=== PATIENT | male | born 1985 | race Two or more races ===

== ENCOUNTER 2024-02-08 20:39 | Emergency (ER) | payer SELFPAY ==
[~2024-02-08] VITALS: Ht 172.7 cm; Wt 150.0 kg
[2024-02-08 22:05] VITALS: BP 129/64; PULSE 72; RESP 18; TEMP 98.3; O2SAT 99
[2024-02-08] MEDS ORDERED: PRED20TA2 PO (22:31)
[2024-02-08] MEDS ORDERED: DIPH25CA66 PO (22:31)
[2024-02-08] MEDS ORDERED: FAMO20TA10 PO (22:31)
[2024-02-09] MEDS: methylPREDNISolone SOD SUCC 125 MG/2 ML VL IM ONE (02:41)
[2024-02-09] MEDS: diphenhdrAMINE HCL 50 MG/1 ML VL IM ONE (02:41)
[2024-02-09] MEDS: FAMOTIDINE 20 MG TAB PO ONE (02:42)
== END 2024-02-08 22:57 | disposition home or self-care (01) ==
LOC: ER 20:39
DX: L50.0 Allergic urticaria (principal)
CPT/HCPCS: 96372; 99284; J1200; J2919

== ENCOUNTER 2025-07-28 08:15 | Inpatient (IN) | payer MEDICAID ==
[~2025-07-28] VITALS: Ht 172.7 cm; Wt 183.1 kg
[~2025-07-28 08:15] MED LIST: DIPH25CA66 PO; FAMO20TA10 PO; PRED20TA2 PO
--- NOTE | 2025-07-28 09:35 | DVH ---
EXAM: XY CHEST PORTABLE Indication: sob Technique: Single frontal view of the chest was obtained Comparison: None FINDINGS: Lines and Tubes: None Lungs: No focal consolidation. Pleura: No effusion. No pneumothorax. Cardiomediastinal contours: Unremarkable Bones: No acute osseous abnormality. IMPRESSION: No acute cardiopulmonary disease.
[2025-07-28 09:51] LABS: Hematocrit 46.1 % (41.0-53.0); Hemoglobin 15.3 g/dL (13.5-17.5); Mean Corpuscular Hemoglobin 29.3 pg (28.0-32.0); Mean Corpuscular Volume 88.2 fL (80.0-100.0); Nucleated Red Blood Cells % 0.0 %
[2025-07-28 09:53] LABS: Chloride 102 mmol/L (98-107); Potassium 4.1 mmol/L (3.5-5.1); Sodium 139 mmol/L (136-145)
[2025-07-28 09:54] LABS: Anion Gap 8 (5-15); Carbon Dioxide 29 mmol/L (20-31)
[2025-07-28 09:55] LABS: Calcium 9.7 mg/dL (8.7-10.4)
--- NOTE | 2025-07-28 09:55 | ED.PDOC ---
HPI Comments This is a 40 year old male presenting to the ED with chief complaint of leg swelling. Patient reports that he has been experiencing worsening bilateral leg swelling with associated abdominal distention for the past 5-6 months. Patient relays that he is currently on a water pill, but no relief has been noted. Patient denies any chest pain, SOB, dizziness, N/V, headache, or fever. Chief Complaint: Extremity Swelling Time Seen by MD: 09:53 Reviewed Notes: Nurses Notes, Medications, Allergies Allergies: Coded Allergies: NO KNOWN ALLERGIES (Unverified , 02/08/24) Home Meds Active Scripts Prednisone (Prednisone) 20 Mg Tab, 1 TAB PO BID for 5 Days, #10 TAB Start tomorrow with food Prov:VERNELL NELSONA Q [employer] OPERATOR 02/08/24 Famotidine (PEPCID TABLET) 20 Mg Tb, 1 TAB PO BID for 10 Days, #20 TAB Prov:VERNELL NELSONA Q [employer] OPERATOR 02/08/24 Diphenhydramine Hcl (Benadryl Allergy) 25 Mg Cap, 1 CAP PO Q8HPRN PRN, #30 CAP As needed for allergy sleep symptoms such as rash itchiness swelling of the face or throat Prov:CHAN NELSON Q [employer] OPERATOR 02/08/24 Information Source: Patient Mode of Arrival: Ambulatory Severity: Moderate Timing: Months Duration: Since onset Prehospital treatment: None Associated Signs and Symptoms: Calf Swelling Past Medical History PAST MEDICAL HISTORY: Unknown Surgical History: Denies all surgeries Family History Family History: Reviewed,noncontributory to illness Social History Smoker: Non-Smoker Alcohol: Denies ETOH Use Drugs: Denies Drug Use Lives In: Home Constitutional: denies: chills, diaphoresis, fatigue, fever, malaise, sweats, weakness, others EENTM: denies: blurred vision, double vision, ear bleeding, ear discharge, ear drainage, ear pain, ear ringing, eye pain, eye redness, hearing loss, mouth pain, mouth swelling, nasal discharge, nose bleeding, nose congestion, nose pain, photophobia, tearing, throat pain, throat swelling, voice changes, others Respiratory: denies: cough, hemoptysis, orthopnea, SOB at rest, shortness of breath, SOB with excertion, stridor, wheezing, others Cardiovascular: reports: edema; denies: chest pain, dizzy spells, diaphoresis, Dyspnea on exertion, irregular heart beat, left arm pain, lightheadedness, palpitations, PND, syncope, others Gastrointestinal: reports: abdomen distended; denies: abdominal pain, blood streaked bowels, constipated, diarrhea, dysphagia, difficulty swallowing, hematemesis, melena, nausea, poor appetite, poor fluid intake, rectal bleeding, rectal pain, vomiting, others Genitourinary: denies: burning, dysuria, flank pain, frequency, hematuria, incontinence, penile discharge, penile sore, pain, testicle pain, testicle swelling, urgency, others Neurological: denies: dizziness, fainting, headache, left sided numbness, left sided weakness, numbness, paresthesia, pre-existing deficit, right sided numbness, right sided weakness, seizure, speech problems, tingling, tremors, weakness, others Musculoskeletal: denies: back pain, gout, joint pain, joint swelling, muscle pain, muscle stiffness, neck pain, others Integumetry: denies: bruises, change in color, change in hair/nails, dryness, laceration, lesions, lumps, rash, wounds, others Allergic/Immunocompromised: denies: Difficulty Healing, Frequent Infections, Hives, Itching, others Hematologic/Lymphatic: denies: anemia, blood clots, easy bleeding, easy bruising, swollen glands, others Endocrine: denies: excessive hunger, excessive sweating, excessive thirst, excessive urination, flushing, intolerance to cold, intolerance to heat, unexplained weight gain, unexplained weight loss, others Psychiatric: denies: anxiety, bipolar disorder, depression, hopeless, panic disorder, schizophrenia, sleepless, suicidal, others All Other Systems: Reviewed and Negative Physical Exam General Appearance: No Apparent Distress, Normal HEENT: Normal ENT Inspection, Pharynx Normal, TMs Normal Neck: Full Range of Motion, Non-Tender, Normal, Normal Inspection Respiratory: Chest Non-Tender, Lungs Clear, No Accessory Muscle Use, No Respiratory Distress, Normal Breath Sounds Cardiovascular: No Edema, No JVD, No Murmur, No Gallop, Normal Peripheral Pulses, Regular Rate/Rhythm Breast Exam: Deferred Gastrointestinal: No Organomegaly, Non Tender, No Pulsatile Mass, Normal Bowel Sounds, Soft Genitalia: Deferred Pelvic: Deferred Rectal: Deferred Extremities: Leg edema (2+ pitting edema to bilateral lower extremities), No calf tenderness, Normal capillary refill, Normal inspection, Normal range of motion Musculoskeletal : Apperance: Normal Neurologic: Alert, prize fighter II-XII nml as Tested, No Motor Deficits, Normal Affect, Normal Mood, No Sensory Deficits Cerebellar Function: Normal Reflexes: Normal Skin: Dry, Normal Color, Warm Lymphatic: No Adenopathy Was a procedure done? Was a procedure done?: No CP Differential Dx Differential Diagnosis: Hypoxia, MAT, DE Differential Diagnosis: CHF, HTN Essential, HTN Accelerated Differential Diagnosis: Gastritis, Myocardial Infarction X-Ray, Labs, Meds, VS Vital Signs Date Time Temp Pulse Resp B/P (MAP) Pulse Ox O2 Delivery O2 Flow Rate FiO2 07/28/25 08:18 98.0 94 18 154/88 96 98.0 Lab Test 07/28/25 12:00 07/28/25 09:50 07/28/25 08:58 Range/Units Troponin I High Sensitivity 5 4 5 </=54 ng/L White Blood Count 9.7 4.4-10.8 10^3/uL Red Blood Count 5.22 4.5-5.90 10^6/uL Hemoglobin 15.3 13.5-17.5 g/dL Hematocrit 46.1 41.0-53.0 % Mean Corpuscular Volume 88.2 80.0-100.0 fL Mean Corpuscular Hemoglobin 29.3 28.0-32.0 pg Mean Corpuscular Hemoglobin Concent 33.2 32.0-36.0 g/dL Red Cell Distribution Width 15.7 H 11.8-14.3 % Platelet Count 240 140-450 10^3/uL Mean Platelet Volume 9.0 6.9-10.8 fL Neutrophils (%) (Auto) 75.1 37.0-80.0 % Lymphocytes (%) (Auto) 14.8 10.0-50.0 % Monocytes (%) (Auto) 7.3 0.0-12.0 % Eosinophils (%) (Auto) 2.0 0.0-7.0 % Basophils (%) (Auto) 0.8 0.0-2.0 % Neutrophils # (Auto) 7.3 1.6-8.6 10 ^3/uL Lymphocytes # (Auto) 1.4 0.4-5.4 10 ^3/uL Monocytes # (Auto) 0.7 0-1.3 10 ^3/uL Eosinophils # (Auto) 0.2 0-0.8 10 ^3/uL Basophils # (Auto) 0.1 0-0.2 10 ^3/uL Nucleated Red Blood Cells 0.0 % Sodium Level 139 136-145 mmol/L Potassium Level 4.1 3.5-5.1 mmol/L Chloride Level 102 98-107 mmol/L Carbon Dioxide Level 29 20-31 mmol/L Anion Gap 8 5-15 Blood Urea Nitrogen 6 L 9-23 mg/dL Creatinine 0.88 0.700-1.30 mg/dL Glomerular Filtration Rate Calc 110 >90 mL/min BUN/Creatinine Ratio 6.8 L 10.0-20.0 Serum Glucose 162 H 74-106 mg/dL Calcium Level 9.7 8.7-10.4 mg/dL B-Type Natriuretic Peptide 2.30 0-100 pg/mL Time of 1ST Reevaluation: 10:52 Reevaluation 1ST: Unchanged Patient Education/Counseling: Diagnosis, Treatment Family Education/Counseling: No Family Present SEPSIS Sepsis Screen Date sepsis recognized/suspect: Jul 28, 2025 Time Sepsis recognized/suspect: 817 Recent Procedure: No On Antibiotic Therapy: No Respiratory Rate >20: No Heart Rate >90: No Temp<36 C (96.8 F) or >38.3 C: No SBP <90 or MAP <65 mmHG: No New Acute Mental Status Change: No Is the patient on CPAP, BIPAP,: No Physician Orders Chest Portable (07/28/25 08:44) Electrocardigram (07/28/25 08:44) Electrocardigram (07/28/25 09:44) Electrocardigram (07/28/25 11:44) Ct Ab Pel With Iv Con Only (07/28/25 10:48) Vital Signs Date Time Temp Pulse Resp B/P (MAP) Pulse Ox O2 Delivery O2 Flow Rate FiO2 07/28/25 08:18 98.0 94 18 154/88 96 98.0 Laboratory Tests Test 07/28/25 08:58 White Blood Count 9.7 10^3/uL (4.4-10.8) Departure 1 Departure Time of Disposition: 13:05 (Patient presented with abdominal pain that was concerning for possible appendicits, gastritis, cholecystitis, colitis, gastroenteritis, sbo, or orther possible surgical emergency. Data: 1. I ordered and reviewed the result of at least 3 labs including a CBC, BMP, and Urinalysis. 2. I independently interpreted the following tests: CT Abdomen and Pelvis is concerning for possible malignancy or infection. .Risk:This patient has a high risk of morbidity due to further diagnostic testing or treatment and may suffer from an acute abdominal process disorder. Workup reveals acute on chronic systo lic failure and worsening abdominal pain and patient should be admitted for further workup. and possible expert consultation. ) Impression: Primary Impression: Intractable abdominal pain Additional Impressions: Acute on chronic systolic heart failure Shortness of breath Disposition: ADMITTED INPATIENT Admit to: Med Surg Condition: Guarded Critical Care Note Critical Care Time?: No Stability Stability form required: No Heart Score Heart Score: Heart Score Response (Comments) Value History Moderate Suspicious 1 EKG Normal 0 Age <45 0 Risk Factors No known risk factors 0 Troponin Normal limit 0 Total 1 I personally scribed for EDUARDO LEDEZMA MD ([email or web address]) on 07/28/25 at 09:55. Electronically submitted by Minesh Prakash ([email or web address]). EDUARDO LEDEZMA MD Jul 28, 2025 09:55
[2025-07-28 10:00] LABS: BUN/Creatinine Ratio 6.8 (10.0-20.0); Blood Urea Nitrogen 6 mg/dL (9-23); Glucose 162 mg/dL (74-106)
[2025-07-28] MEDS: IOHEXOL 300 MG/ML 100ML BOTTLE IJ ONE (11:27)
--- NOTE | 2025-07-28 12:15 | DVH ---
Indication: abdominal pain Technique: CT axial images of the abdomen and pelvis are obtained with contrast. Coronal and sagittal reformats were obtained. Radiation Dose Information: CTDI volume is 25.51 mGy. Dose-length product is 1502.11 mGy*cm Comparison: None FINDINGS: Lung bases demonstrate no pleural effusion. Bibasilar atelectasis. The adrenal glands, spleen and pancreas are unremarkable. Hepatic steatosis. Hepatomegaly. No CT evidence for cholelithiasis. m no hydronephrosis. Left renal calculus measuring 12 mm that is nonobstructing. Stomach partially distended. Small bowel loops are normal in caliber. Moderate volume stool in the colon. Normal appendix. Abdominal aorta normal in caliber. Subcentimeter retroperitoneal lymph nodes. Right iliac lymph node measuring 2.4 cm. Left iliac lymph node measuring 2 cm. Left inguinal lymph nodes measuring up to 1.5 cm. Right inguinal lymph nodes measuring up to 1.7 cm. No aggressive osseous process. Mild bilateral sacroiliac degenerative joint disease. Moderate lumbar degenerative disc disease most pronounced at L2-3. [id number] thoracolumbar degenerative disc disease. IMPRESSION: Bilateral iliac and inguinal lymphadenopathy. Correlate for infectious, inflammatory, neoplastic etiologies. Hepatomegaly, hepatic steatosis. Nonobstructing left renal calculus measuring 12 mm.
--- NOTE | 2025-07-28 15:41 | DVHHP2 ---
History of Present Illness Reason for Visit: Lower extremity edema History of Present Illness 40-year-old male presents for evaluation of lower extremity edema. Patient reports a five month history of bilateral lower extremity edema as well as abdominal distention. He he initially was started on furosemide with no effect on the swelling. Currently he is taking Bumex 1 mg daily. He states the swelling has not decreased. Denies abdominal pain. No shortness for breath or chest pain. No other acute complaints. Past Medical History Denies Past Surgical History Denies Family History Noncontributory Smoke: No ALCOHOL: none Drugs: None Lives: with Family Review of Systems Review of Systems Review of systems are currently negative otherwise addressed in HPI. Allergies: Coded Allergies: NO KNOWN ALLERGIES (Unverified , 02/08/24) Exam Vital Signs Vital Signs Date Time Temp Pulse Resp B/P (MAP) Pulse Ox O2 Delivery O2 Flow Rate FiO2 07/28/25 08:18 98.0 94 18 154/88 96 98.0 Exam Gen: 40-year-old male in mild distress, morbidly obese Skin: Warm, dry, normal color and texture, no rash. HEENT: Normocephalic atraumatic, mucous membranes moist and pink. Neck: Cervical and supraclavicular nodes normal without enlargement, trachea is midline, thyroid gland is normal without masses. Pulmonary: Clear to auscultation and percussion bilaterally. Cardiac: Regular rate and rhythm. No murmur Abdomen: Soft, nontender, distended, bowel sounds present all 4 quadrants, no guarding, no rigidity, no organomegaly. Extremities: No cyanosis, clubbing, plus two bilateral lower extremity edema nontender Neuro: Cranial nerves II through XII grossly intact, normal affect and speech, n o focal motor deficits. Labs/Xrays ORDERING PHYSICIAN: EDUARDO LEDEZMA MD PROCEDURE(s): CXRP - CHEST PORTABLE REASON: sob ORDER NUMBER(s): [id number], ACCESSION NUMBER(s): [id number] EXAM: XY CHEST PORTABLE Indication: sob Technique: Single frontal view of the chest was obtained Comparison: None FINDINGS: Lines and Tubes: None Lungs: No focal consolidation. Pleura: No effusion. No pneumothorax. Cardiomediastinal contours: Unremarkable Bones: No acute osseous abnormality. IMPRESSION: No acute cardiopulmonary disease. RING PHYSICIAN: EDUARDO LEDEZMA MD PROCEDURE(s): ABPLIV - CT AB PEL WITH IV CON ONLY REASON: abdominal pain ORDER NUMBER(s): [id number], ACCESSION NUMBER(s): [id number] Indication: abdominal pain Technique: CT axial images of the abdomen and pelvis are obtained with contrast. Coronal and sagittal reformats were obtained. Radiation Dose Information: CTDI volume is 25.51 mGy. Dose-length product is 1502.11 mGy*cm Comparison: None FINDINGS: Lung bases demonstrate no pleural effusion. Bibasilar atelectasis. The adrenal glands, spleen and pancreas are unremarkable. Hepatic steatosis. Hepatomegaly. No CT evidence for cholelithiasis. m no hydronephrosis. Left renal calculus measuring 12 mm that is nonobstructing. Stomach partially distended. Small bowel loops are normal in caliber. Moderate volume stool in the colon. Normal appendix. Abdominal aorta normal in caliber. Subcentimeter retroperitoneal lymph nodes. Right iliac lymph node measuring 2.4 cm. Left iliac lymph node measuring 2 cm. Left inguinal lymph nodes measuring up to 1.5 cm. Right inguinal lymph nodes measuring up to 1.7 cm. No aggressive osseous process. Mild bilateral sacroiliac degenerative joint disease. Moderate lumbar degenerative disc disease most pronounced at L2-3. [id number] thoracolumbar degenerative disc disease. IMPRESSION: Bilateral iliac and inguinal lymphadenopathy. Correlate for infectious, inflammatory, neoplastic etiologies. Hepatomegaly, hepatic steatosis. Nonobstructing left renal calculus measuring 12 mm. Labs Test 07/28/25 12:00 07/28/25 08:58 Range/Units Troponin I High Sensitivity 5 </=54 ng/L White Blood Count 9.7 4.4-10.8 10^3/uL Red Blood Count 5.22 4.5-5.90 10^6/uL Hemoglobin 15.3 13.5-17.5 g/dL Hematocrit 46.1 41.0-53.0 % Mean Corpuscular Volume 88.2 80.0-100.0 fL Mean Corpuscular Hemoglobin 29.3 28.0-32.0 pg Mean Corpuscular Hemoglobin Concent 33.2 32.0-36.0 g/dL Red Cell Distribution Width 15.7 H 11.8-14.3 % Platelet Count 240 140-450 10^3/uL Mean Platelet Volume 9.0 6.9-10.8 fL Neutrophils (%) (Auto) 75.1 37.0-80.0 % Lymphocytes (%) (Auto) 14.8 10.0-50.0 % Monocytes (%) (Auto) 7.3 0.0-12.0 % Eosinophils (%) (Auto) 2.0 0.0-7.0 % Basophils (%) (Auto) 0.8 0.0-2.0 % Neutrophils # (Auto) 7.3 1.6-8.6 10 ^3/uL Lymphocytes # (Auto) 1.4 0.4-5.4 10 ^3/uL Monocytes # (Auto) 0.7 0-1.3 10 ^3/uL Eosinophils # (Auto) 0.2 0-0.8 10 ^3/uL Basophils # (Auto) 0.1 0-0.2 10 ^3/uL Nucleated Red Blood Cells 0.0 % Sodium Level 139 136-145 mmol/L Potassium Level 4.1 3.5-5.1 mmol/L Chloride Level 102 98-107 mmol/L Carbon Dioxide Level 29 20-31 mmol/L Anion Gap 8 5-15 Blood Urea Nitrogen 6 L 9-23 mg/dL Creatinine 0.88 0.700-1.30 mg/dL Glomerular Filtration Rate Calc 110 >90 mL/min BUN/Creatinine Ratio 6.8 L 10.0-20.0 Serum Glucose 162 H 74-106 mg/dL Calcium Level 9.7 8.7-10.4 mg/dL B-Type Natriuretic Peptide 2.30 0-100 pg/mL SEPSIS Sepsis Screen Date sepsis recognized/suspect: Jul 28, 2025 Time Sepsis recognized/suspect: 817 Recent Procedure: No On Antibiotic Therapy: No Respiratory Rate >20: No Heart Rate >90: No Temp<36 C (96.8 F) or >38.3 C: No SBP <90 or MAP <65 mmHG: No New Acute Mental Status Change: No Is the patient on CPAP, BIPAP,: No Physician Orders Chest Portable (07/28/25 08:44) Electrocardigram (07/28/25 08:44) Electrocardigram (07/28/25 09:44) Electrocardigram (07/28/25 11:44) Ct Ab Pel With Iv Con Only (07/28/25 10:48) Furosemide Injection (Lasix Injection) (07/28/25 15:45) Furosemide Injection (Lasix Injection) (07/29/25 10:00) Basic Metabolic Panel (07/29/25 04:00) Admit (07/28/25 15:33) Ondansetron Hcl (Zofran) (07/28/25 15:45) Complete Blood Count (07/29/25 04:00) Cardiac Diet-2gna,Lofat,Lochol (07/28/25 Dinner) Echo 2d Mode Cardiac Dop (07/28/25 15:33) Condition: Stable (07/28/25 15:33) Acetaminophen Tablet (Tylenol Tablet) (07/28/25 15:45) Bedrest With Bathroom Privileg (07/28/25 15:33) Bilat Lower Dvt (07/28/25 15:33) Vital Signs Date Time Temp Pulse Resp B/P (MAP) Pulse Ox O2 Delivery O2 Flow Rate FiO2 07/28/25 08:18 98.0 94 18 154/88 96 98.0 Laboratory Tests Test 07/28/25 08:58 White Blood Count 9.7 10^3/uL (4.4-10.8) Assessment/Plan Assessment/Plan Lower extremity edema Rule out heart failure Morbid obesity Plan Admit the patient to [facility] to the hospitalist IV Lasix Echocardiogram pending Bilateral lower extremity DVT study pending Continue treatment per orders. Plan discussed with: Patient My Orders Orders - ABHI LAN Procedure Category Date Status Time Furosemide Injection PHA 07/28/25 Transmitted (Lasix Injection) 15:45 Furosemide Injection PHA 07/29/25 Transmitted (Lasix Injection) 10:00 Basic Metabolic Panel LAB 07/29/25 Verified 04:00 Admit ADMIT 07/28/25 Transmitted 15:33 Ondansetron Hcl PHA 07/28/25 Transmitted (Zofran) 15:45 Complete Blood Count LAB 07/29/25 Verified 04:00 Cardiac DIET 07/28/25 Transmitted Diet-2gna,Lofat,Lochol Dinner Echo 2d Mode Cardiac US 07/28/25 Transmitted DOP 15:33 Condition: Stable MAKENNA 07/28/25 Transmitted 15:33 Acetaminophen Tablet PHA 07/28/25 Transmitted (Tylenol Tablet) 15:45 Bedrest With Bathroom MAKENNA 07/28/25 Transmitted Privileg 15:33 Bilat Lower Dvt US 07/28/25 Transmitted 15:33 Date of Service: Jul 28, 2025 Billing Provider: ABHI LAN Common Visit Codes: [id number] INP/OBS CARE (MOD) ABHI LAN Jul 28, 2025 15:41
[2025-07-28] MEDS ORDERED: ONDANSETRON HCL 4 MG/2 ML VIAL IV PRN (15:45)
--- NOTE | 2025-07-28 16:30 | DVH ---
Technique: Real-time ultrasound imaging, with color Doppler and compression of the bilateral common femoral vein, femoral vein, greater saphenous vein, and popliteal vein. Indication: r/o dvt Comparison: None Findings: There is normal compressibility and flow augmentation in all of the imaged deep veins. However the left superficial femoral vein distally is nonvisualized. There are no filling defects. Right inguinal lymph node measuring 5.3 x 1.1 cm with fatty hilum. Left inguinal lymph node measuring 3 x 1.8 cm. Impression: No evidence of DVT in the evaluated veins as described. The distal left superficial femoral vein is nonvisualized. Bilateral inguinal lymphadenopathy as described. Correlate for infectious, inflammatory, neoplastic processes.
[2025-07-28 16:49] LABS: Triglycerides 122 mg/dL (< 150)
[2025-07-28 16:52] LABS: Cholesterol 141 mg/dL (< 200); HDL Cholesterol 38 mg/dL (40-59)
[2025-07-28 17:33] VITALS: BP 141/87; PULSE 82; RESP 18; TEMP 98.2; O2SAT 95
[2025-07-28] MEDS: FUROSEMIDE 40 MG/4 ML VIAL IV ONE (18:25)
[2025-07-28 20:00] VITALS: PULSE 106; RESP 19; O2SAT 95
[2025-07-28 21:00] VITALS: BP 124/80; PULSE 106; RESP 19; TEMP 98; O2SAT 95
[2025-07-29] VITALS (9 sets, daily range): BP systolic 118–140; BP diastolic 76–94; PULSE 90–106; RESP 16–19; TEMP 97.5–98.5; O2SAT 92–99
[2025-07-29 06:39] LABS: Hematocrit 45.7 % (41.0-53.0); Hemoglobin 15.5 g/dL (13.5-17.5); Mean Corpuscular Hemoglobin 29.9 pg (28.0-32.0); Mean Corpuscular Volume 88.1 fL (80.0-100.0); Nucleated Red Blood Cells % 0.0 %
[2025-07-29 06:45] LABS: Chloride 101 mmol/L (98-107); Potassium 3.9 mmol/L (3.5-5.1); Sodium 140 mmol/L (136-145)
[2025-07-29 06:46] LABS: Anion Gap 9 (5-15); Carbon Dioxide 30 mmol/L (20-31)
[2025-07-29 06:47] LABS: Calcium 9.9 mg/dL (8.7-10.4)
[2025-07-29 06:52] LABS: BUN/Creatinine Ratio 12.5 (10.0-20.0); Blood Urea Nitrogen 11 mg/dL (9-23)
[2025-07-29 06:58] LABS: Glucose 132 mg/dL (74-106)
[2025-07-29] MEDS: FUROSEMIDE 20 MG/2 ML VIAL IV SCH (09:36)
--- NOTE | 2025-07-29 13:02 | DVHPN2 ---
Reviewed: Care Plan, H&P, Labs, Medications, Previous Orders, Radiology Changes from previous H/P or p: No Changes Objective Vitals Vital Signs Date Time Temp Pulse Resp B/P (MAP) Pulse Ox O2 Delivery O2 Flow Rate FiO2 07/29/25 09:36 134/88 07/29/25 08:34 98.1 102 16 95 98.1 07/29/25 08:00 Room Air* 0 21 Intake/Output Intake and Output 07/29/25 07:00 Intake Total 650 ml Balance 650 ml Intake Oral 650 ml # Voids 3 Medications Current Medications Medications Dose Ordered Sig/[place] Route Start Time Stop Time Status Last Admin Dose Admin Furosemide 20 mg DAILY IV 07/29/25 10:00 07/29/25 09:36 20 MG Ondansetron HCl 4 mg Q4HP PRN IV 07/28/25 15:45 Acetaminophen 650 mg Q6HP PRN PO 07/28/25 15:45 Laboratory Results Laboratory Tests 07/29/25 05:35 Chemistry Test 07/29/25 05:35 Calcium Level 9.9 mg/dL (8.7-10.4) HgA1c, TSH Test 07/28/25 17:04 Hemoglobin A1c 8.0 % A1C (<5.7) H Labs and/or images reviewed: Labs reviewed by me, Image(s) reviewed by me Assessment/Plan Assessment/Plan Bilateral lower extremity swelling unknown etiology: Echocardiogram cardiology consult for Dr Gerardo Grigsby Bilateral iliac and inguinal lymphadenopathy: Consult for GI Dr. Karime Connelly Morbid obesity BMI of 61 DVT ruled out Controlled diabetes A1c 8.0 Current history of smoking: Counseling History of alcohol abuse in the past Plan discussed with: Patient Date of Service: Jul 29, 2025 Billing Provider: GEOVANY BRIDGES MD Common Visit Codes: [id number] INP/OBS CARE(HIGH) GEOVANY BRIDGES MD Jul 29, 2025 13:02
[2025-07-29 14:48] LABS: Amphetamine Screen, Urine Neg (NEGATIVE); Barbiturate Scree,Urine Neg (NEGATIVE); Benzodiazephine Screen, Urine Neg (NEGATIVE); Cannabinoid Screen, Urine Neg (NEGATIVE); Cocaine Screen, Urine Neg (NEGATIVE); Opiate Scree,Urine Neg (NEGATIVE); Phencyclidine Screen, Urine Neg (NEGATIVE)
--- NOTE | 2025-07-29 16:35 | DVHCONRES ---
Date Seen: Jul 29, 2025 Resident Creating Document: KELLIE HOWELL RESIDENT Referring Physician Dr Donn Melendez Reason for Consultation Bilateral lower extremity edema History of Present Illness AV PANG is a 40 years old male with no significant past medical history presented to the ED with the chief complaints of worsening of lower extremity swelling for 5-6 months and abdominal swelling. Patient reported that he has been having this problem for 5-6 months, went to clinic given bumetanide despite of that the swelling is not improving so patient decided to visit ED. Patient reported that he has been awaiting for sleep study for sleep apnea. But patient denies shortness of breath, chest pain, recent travel, and other associated features. PMH: Questionable sleep apnea PSH: Kidney stones procedure Family history: History of triple bypass 3 times in father and history of heart disease in mother as well Social history: Lives with a sister. Current smoker 2 packs per day, tried marijuana occasionally but no alcohol use Home medications: Bumetanide 1 mg Allergies: No known allergies ROS: Patient seen and examined at the bedside. Patient reported no active complaints except lowewr extremity swelling but rest of ROS is negative Family History: Alzheimer's disease G8 MOTHER Cardiovascular disease G8 MOTHER G8 FATHER Hypertension G8 MOTHER G8 FATHER Allergies: Coded Allergies: NO KNOWN ALLERGIES (Unverified , 02/08/24) Home Meds Active Scripts Prednisone (Prednisone) 20 Mg Tab, 1 TAB PO BID for 5 Days, #10 TAB Start tomorrow with food Prov:NELSONNORALDA Q SENIOR EMBEDDED SOFTWARE ENGINEER 02/08/24 Famotidine (PEPCID TABLET) 20 Mg Tb, 1 TAB PO BID for 10 Days, #20 TAB Prov:XANDER NELSONALDA Q SENIOR EMBEDDED SOFTWARE ENGINEER 02/08/24 Diphenhydramine Hcl (Benadryl Allergy) 25 Mg Cap, 1 CAP PO Q8HPRN PRN, #30 CAP As needed for allergy sleep symptoms such as rash itchiness swelling of the face or throat Prov:VERNELL NELSONA Q SENIOR EMBEDDED SOFTWARE ENGINEER 02/08/24 Current Medications Current Medications Medications (Trade) Dose Ordered Sig/Enrico Route PRN Reason Start Time Stop Time Status Last Admin Furosemide (Lasix Injection) 20 mg DAILY IV 07/29/25 10:00 07/29/25 09:36 Vital Signs Vital Signs Date Time Temp Pulse Resp B/P (MAP) Pulse Ox O2 Delivery O2 Flow Rate FiO2 07/29/25 12:59 98.5 97 17 131/84 (100) 94 98.5 07/29/25 08:00 Room Air* 0 21 Physical Exam Pt is lying on bed General Appearance: Alert, Oriented X3, Cooperative, Not in acute distress HEENT: Atraumatic, Mucous membranes moist/pink Respiratory: Clear to auscultation, Normal air movement, No added sounds Cardiovascular: Regular rate, Normal S1, Normal S2, No murmurs Abdominal: obese, Active bowel sounds, Soft, no distention, no tenderness, Extremities: 2+ BLE edema, Normal pulses, No tenderness Skin: No Significant rash, except past surgical scars Neuro: Normal speech, sensorimotor deficits none Psych/Mental Status: Mental status NL, Mood NL Nurse was there as clinical resource manager during examination Labs/Diagnostic Data Labs Test 07/29/25 15:18 07/29/25 05:35 07/28/25 17:04 07/28/25 14:09 Range/Units White Blood Count 10.4 4.4-10.8 10^3/uL Red Blood Count 5.19 4.5-5.90 10^6/uL Hemoglobin 15.5 13.5-17.5 g/dL Hematocrit 45.7 41.0-53.0 % Mean Corpuscular Volume 88.1 80.0-100.0 fL Mean Corpuscular Hemoglobin 29.9 28.0-32.0 pg Mean Corpuscular Hemoglobin Concent 33.9 32.0-36.0 g/dL Red Cell Distribution Width 15.5 H 11.8-14.3 % Platelet Count 263 140-450 10^3/uL Mean Platelet Volume 9.1 6.9-10.8 fL Neutrophils (%) (Auto) 75.1 37.0-80.0 % Lymphocytes (%) (Auto) 14.8 10.0-50.0 % Monocytes (%) (Auto) 7.8 0.0-12.0 % Eosinophils (%) (Auto) 1.6 0.0-7.0 % Basophils (%) (Auto) 0.7 0.0-2.0 % Neutrophils # (Auto) 7.8 1.6-8.6 10 ^3/uL Lymphocytes # (Auto) 1.5 0.4-5.4 10 ^3/uL Monocytes # (Auto) 0.8 0-1.3 10 ^3/uL Eosinophils # (Auto) 0.2 0-0.8 10 ^3/uL Basophils # (Auto) 0.1 0-0.2 10 ^3/uL Nucleated Red Blood Cells 0.0 % Sodium Level 140 136-145 mmol/L Potassium Level 3.9 3.5-5.1 mmol/L Chloride Level 101 98-107 mmol/L Carbon Dioxide Level 30 20-31 mmol/L Anion Gap 9 5-15 Blood Urea Nitrogen 11 9-23 mg/dL Creatinine 0.88 0.700-1.30 mg/dL Glomerular Filtration Rate Calc 110 >90 mL/min BUN/Creatinine Ratio 12.5 10.0-20.0 Serum Glucose 132 H 74-106 mg/dL Calcium Level 9.9 8.7-10.4 mg/dL Magnesium Level 1.8 1.6-2.6 mg/dL Hemoglobin A1c 8.0 H <5.7 % A1C Urine Opiates Screen Neg NEGATIVE Urine Fentanyl Screen Neg NEGATIVE Urine Barbiturates Screen Neg NEGATIVE Urine Phencyclidine Screen Neg NEGATIVE Urine Amphetamines Screen Neg NEGATIVE Urine Benzodiazepines Screen Neg NEGATIVE Urine Cocaine Screen Neg NEGATIVE Urine Cannabinoids Screen Neg NEGATIVE Test 07/28/25 12:00 07/28/25 08:58 Range/Units Troponin I High Sensitivity 5 </=54 ng/L B-Type Natriuretic Peptide 2.30 0-100 pg/mL Triglycerides Level 122 < 150 mg/dL Cholesterol Level 141 < 200 mg/dL LDL Cholesterol 93 < 100 mg/dL HDL Cholesterol 38 L 40-59 mg/dL Thyroid Stimulating Hormone (TSH) 1.87 0.55-4.78 uIU/mL Assessment Rule out structural heart disease Ruled out DVT Morbid obesity with a BMI 61.4 Tobacco use disorder /dependence Possible TAI Plan/Recommendation We will continue with the following plan/recommendations (Dr. Carrillo): Echocardiogram to evaluate cardiac function Diuretics as tolerated Outpatient sleep study Aggressive lifestyle modifications in diet and exercise Rest of management as per primary team Case discussed with the Dr. Carrillo. We will sign off if echocardiogram was normal and patient may need outpatient follow up Plan discussed with: Patient Date of Service: Jul 29, 2025 Billing Provider: LESLIE KOHLER MD Common Visit Codes: [id number] CARE 30-74 MIN KELLIE HOWELL RESIDENT Jul 29, 2025 16:35
--- NOTE | 2025-07-29 16:42 | DVHCONRES ---
Date Seen: Jul 29, 2025 Resident Creating Document: JHAJJ,SARPUNEET RESIDENT Referring Physician Dr. Melendez Reason for Consultation Lymphadenitis History of Present Illness Patient is a 40-year-old male with morbid obesity presented to the hospital for evaluation of bilateral lower extremity edema. Patient reports a five month history of bilateral lower extremity edema as well as abdominal distention. He he initially was started on furosemide with no effect on the swelling. Currently he is taking Bumex 1 mg daily. He states the swelling has not decreased. Denies abdominal pain. No shortness for breath or chest pain. No other acute complaints. Past Medical History Denies Past Surgical History Denies Family History: Alzheimer's disease G8 MOTHER Cardiovascular disease G8 MOTHER G8 FATHER Hypertension G8 MOTHER G8 FATHER Family History Noncontributory Social History Smokes 1-2 pack of cigarettes per day, denies alcohol or any other drug use Allergies: Coded Allergies: NO KNOWN ALLERGIES (Unverified , 02/08/24) Home Meds Active Scripts Prednisone (Prednisone) 20 Mg Tab, 1 TAB PO BID for 5 Days, #10 TAB Start tomorrow with food Prov:NELSONXANDERALDA Q ESOL INSTRUCTOR 02/08/24 Famotidine (PEPCID TABLET) 20 Mg Tb, 1 TAB PO BID for 10 Days, #20 TAB Prov:NELSONXANDERALDA Q ESOL INSTRUCTOR 02/08/24 Diphenhydramine Hcl (Benadryl Allergy) 25 Mg Cap, 1 CAP PO Q8HPRN PRN, #30 CAP As needed for allergy sleep symptoms such as rash itchiness swelling of the face or throat Prov:XANDER NELSONALDA Q ESOL INSTRUCTOR 02/08/24 Current Medications Current Medications Medications (Trade) Dose Ordered Sig/Enrico Route PRN Reason Start Time Stop Time Status Last Admin Furosemide (Lasix Injection) 20 mg DAILY IV 07/29/25 10:00 07/29/25 09:36 Review of Systems Patient seen and examined at the bedside Feels sleepy and groggy and reports he has a sleep apnea but has not been diagnosed officially Denies any abdominal pain, nausea, vomiting, diarrhea or constipation Tolerating diet well Vital Signs Vital Signs Date Time Temp Pulse Resp B/P (MAP) Pulse Ox O2 Delivery O2 Flow Rate FiO2 07/29/25 12:59 98.5 97 17 131/84 (100) 94 98.5 07/29/25 08:00 Room Air* 0 21 Physical Exam Gen - no pallor, no scleral icterus Skin - Patients skin is warm and dry. HEENT - normocephalic, atraumatic, dry mucous membranes. Neck - supple Pulmonary - B/L clear breath sounds, no crackles cardiovascular - regular S1,S2 heard GI - obese abdomen with no tenderness to palpation. Bowel sounds normoactive. Neurological - Patient is alert and oriented x4. No motor weakness, or sensory abnormality Labs/Diagnostic Data Labs Test 07/29/25 15:18 07/29/25 05:35 07/28/25 17:04 07/28/25 14:09 Range/Units White Blood Count 10.4 4.4-10.8 10^3/uL Red Blood Count 5.19 4.5-5.90 10^6/uL Hemoglobin 15.5 13.5-17.5 g/dL Hematocrit 45.7 41.0-53.0 % Mean Corpuscular Volume 88.1 80.0-100.0 fL Mean Corpuscular Hemoglobin 29.9 28.0-32.0 pg Mean Corpuscular Hemoglobin Concent 33.9 32.0-36.0 g/dL Red Cell Distribution Width 15.5 H 11.8-14.3 % Platelet Count 263 140-450 10^3/uL Mean Platelet Volume 9.1 6.9-10.8 fL Neutrophils (%) (Auto) 75.1 37.0-80.0 % Lymphocytes (%) (Auto) 14.8 10.0-50.0 % Monocytes (%) (Auto) 7.8 0.0-12.0 % Eosinophils (%) (Auto) 1.6 0.0-7.0 % Basophils (%) (Auto) 0.7 0.0-2.0 % Neutrophils # (Auto) 7.8 1.6-8.6 10 ^3/uL Lymphocytes # (Auto) 1.5 0.4-5.4 10 ^3/uL Monocytes # (Auto) 0.8 0-1.3 10 ^3/uL Eosinophils # (Auto) 0.2 0-0.8 10 ^3/uL Basophils # (Auto) 0.1 0-0.2 10 ^3/uL Nucleated Red Blood Cells 0.0 % Sodium Level 140 136-145 mmol/L Potassium Level 3.9 3.5-5.1 mmol/L Chloride Level 101 98-107 mmol/L Carbon Dioxide Level 30 20-31 mmol/L Anion Gap 9 5-15 Blood Urea Nitrogen 11 9-23 mg/dL Creatinine 0.88 0.700-1.30 mg/dL Glomerular Filtration Rate Calc 110 >90 mL/min BUN/Creatinine Ratio 12.5 10.0-20.0 Serum Glucose 132 H 74-106 mg/dL Calcium Level 9.9 8.7-10.4 mg/dL Magnesium Level 1.8 1.6-2.6 mg/dL Hemoglobin A1c 8.0 H <5.7 % A1C Urine Opiates Screen Neg NEGATIVE Urine Fentanyl Screen Neg NEGATIVE Urine Barbiturates Screen Neg NEGATIVE Urine Phencyclidine Screen Neg NEGATIVE Urine Amphetamines Screen Neg NEGATIVE Urine Benzodiazepines Screen Neg NEGATIVE Urine Cocaine Screen Neg NEGATIVE Urine Cannabinoids Screen Neg NEGATIVE Test 07/28/25 12:00 07/28/25 08:58 Range/Units Troponin I High Sensitivity 5 </=54 ng/L B-Type Natriuretic Peptide 2.30 0-100 pg/mL Triglycerides Level 122 < 150 mg/dL Cholesterol Level 141 < 200 mg/dL LDL Cholesterol 93 < 100 mg/dL HDL Cholesterol 38 L 40-59 mg/dL Thyroid Stimulating Hormone (TSH) 1.87 0.55-4.78 uIU/mL Assessment Bilateral iliac and inguinal lymphadenopathy ? Infectious ? Inflammatory ? Neoplastic Morbid obesity ? Constipation Hepatomegaly Hepatic steatosis Plan - CT abdomen pelvis showed left and right inguinal lymphadenopathy, left and right iliac lymphadenopathy, retroperitoneal lymphadenopathy - recommend surgical/IR consultation for lymph node biopsy - monitor monitor LFTs - MiraLax as needed for constipation Plan discussed with Dr. Connelly Plan discussed with: Patient VI CARLOS RESIDENT Jul 29, 2025 16:42
[2025-07-29] MEDS ORDERED: POLYETHYLENE GLYCOL 17 GM PWDR PO PRN (16:45)
[2025-07-30] VITALS (8 sets, daily range): BP systolic 103–152; BP diastolic 71–98; PULSE 88–109; RESP 17–20; TEMP 97.5–98.6; O2SAT 90–100
[2025-07-30 07:43] LABS: Hematocrit 45.9 % (41.0-53.0); Hemoglobin 15.4 g/dL (13.5-17.5); Mean Corpuscular Hemoglobin 29.6 pg (28.0-32.0); Mean Corpuscular Volume 88.4 fL (80.0-100.0); Nucleated Red Blood Cells % 0.1 %
[2025-07-30 08:56] LABS: Anion Gap 10 (5-15); BUN/Creatinine Ratio 11.0 (10.0-20.0); Blood Urea Nitrogen 10 mg/dL (9-23); Calcium 9.4 mg/dL (8.7-10.4); Chloride 99 mmol/L (98-107); Potassium 3.9 mmol/L (3.5-5.1); Sodium 140 mmol/L (136-145); Total Protein 7.7 g/dL (5.7-8.2)
[2025-07-30 08:57] LABS: Albumin 4.3 g/dL (3.2-4.8); Bilirubin, Total 0.4 mg/dL (0.2-1.0)
[2025-07-30 08:58] LABS: Alanine Aminotransferase 56 U/L (7-40); Alkaline Phosphatase 119 U/L (46-116); Carbon Dioxide 31 mmol/L (20-31); Glucose 137 mg/dL (74-106)
--- NOTE | 2025-07-30 11:23 | DVHPN2 ---
Reviewed: Care Plan, H&P, Labs, Medications, Previous Orders, Radiology Changes from previous H/P or p: No Changes Objective Vitals Vital Signs Date Time Temp Pulse Resp B/P (MAP) Pulse Ox O2 Delivery O2 Flow Rate FiO2 07/30/25 10:00 90 Room Air 07/30/25 09:39 141/92 07/30/25 09:00 98.6 88 18 98.6 07/30/25 08:00 0 21 Intake/Output Intake and Output 07/30/25 07:00 Intake Total 1500 ml Balance 1500 ml Intake Oral 800 ml Tube Feeding 700 ml # Voids 13 Medications Current Medications Medications Dose Ordered Sig/Enrico Route Start Time Stop Time Status Last Admin Dose Admin Furosemide 20 mg DAILY IV 07/29/25 10:00 07/30/25 09:39 20 MG Ondansetron HCl 4 mg Q4HP PRN IV 07/28/25 15:45 Acetaminophen 650 mg Q6HP PRN PO 07/28/25 15:45 Polyethylene Glycol 17 gm DAILYPRN PRN PO 07/29/25 16:45 Laboratory Results Laboratory Tests 07/30/25 05:56 Chemistry Test 07/30/25 05:56 Albumin 4.3 g/dL (3.2-4.8) Calcium Level 9.4 mg/dL (8.7-10.4) Total Protein 7.7 g/dL (5.7-8.2) LFT Test 07/30/25 05:56 Alanine Aminotransferase (ALT) 56 U/L (7-40) H Alkaline Phosphatase 119 U/L (46-116) H Aspartate Amino Transferase (AST) 48 U/L (13-40) H Total Bilirubin 0.4 mg/dL (0.2-1.0) Assessment/Plan Assessment/Plan Bilateral lower extremity swelling unknown etiology: Echocardiogram result pending cardiology consult for Dr Gerardo alicea, continue Lasix Bilateral iliac and inguinal lymphadenopathy: Consult for GI Dr. Karime Connelly, advised interventional radiologist consultation for lymph node biopsy which was placed Morbid obesity BMI of 61 DVT ruled out Controlled diabetes A1c 8.0 Current history of smoking: Counseling Possible obstructive sleep apnea History of alcohol abuse in the past Plan discussed with: Patient My Orders Orders - GEOVANY BRIDGES MD Procedure Category Date Status Time * Cardiology Consult CONS 07/29/25 Transmitted 13:02 * Gi Dvh Escort Patients CONS 07/29/25 Transmitted 13:02 * Radiologist Consult CONS 07/30/25 Verified 11:19 Date of Service: Jul 30, 2025 Billing Provider: GEOVANY BRIDGES MD Common Visit Codes: [id number] INP/OBS CARE(HIGH) GEOVANY BRIDGES MD Jul 30, 2025 11:23
--- NOTE | 2025-07-30 11:31 | DVHPNRES ---
Progress Note Date Seen: Jul 30, 2025 Resident Creating Document: JIMMY LOMAS RESIDENT Has the PT tested + for MRSA If YES, has PT been informed?: No Medical Necessity Reason Pt with a Central, PICC or Fol: No Subjective Review of Systems AV PANG is a 40 years old male with no significant past medical history presented to the ED with the chief complaints of worsening of lower extremity swelling for 5-6 months and abdominal swelling. Patient reported that he has been having this problem for 5-6 months, went to clinic given bumetanide despite of that the swelling is not improving so patient decided to visit ED. Patient reported that he has been awaiting for sleep study for sleep apnea. But patient denies shortness of breath, chest pain, recent travel, and other associated features. 07/30/25: no acute complaints, no chest pain, ECHO normal EF Objective vital signs Vital Sign Date Time Temp Pulse Resp B/P (MAP) Pulse Ox O2 Delivery O2 Flow Rate FiO2 07/30/25 10:00 90 Room Air 07/30/25 09:39 141/92 07/30/25 09:00 98.6 88 18 98.6 07/30/25 08:00 0 21 Total Intake and Output 07/29/25 07/29/25 07/30/25 15:00 23:00 07:00 Intake Total 800 ml 700 ml Balance 800 ml 700 ml medications Current Medications Medications Dose Ordered Sig/Enrico Route Start Time Stop Time Status Last Admin Dose Admin Furosemide 20 mg DAILY IV 07/29/25 10:00 07/30/25 09:39 20 MG Ondansetron HCl 4 mg Q4HP PRN IV 07/28/25 15:45 Acetaminophen 650 mg Q6HP PRN PO 07/28/25 15:45 Polyethylene Glycol 17 gm DAILYPRN PRN PO 07/29/25 16:45 Examination Pt is lying on bed General Appearance: Alert, Oriented X3, Cooperative, Not in acute distress HEENT: Atraumatic, Mucous membranes moist/pink Respiratory: Clear to auscultation, Normal air movement, No added sounds Cardiovascular: Regular rate, Normal S1, Normal S2, No murmurs Abdominal: obese, Active bowel sounds, Soft, no distention, no tenderness, Extremities: 2+ BLE edema, Normal pulses, No tenderness Skin: No Significant rash, except past surgical scars Neuro: Normal speech, sensorimotor deficits none Psych/Mental Status: Mental status NL, Mood NL Nurse was there as naphtha washing system operator during examination laboratory and microbiology Laboratory Tests 07/30/25 05:56 Test 07/30/25 05:56 Range/Units Serum Glucose 137 H 74-106 mg/dL Problem List/Assessment/Plan Problem List/Assessment/Plan Ruled out structural heart disease Ruled out DVT Morbid obesity with a BMI 61.4 Tobacco use disorder /dependence Possible TAI Plan/Recommendation We will continue with the following plan/recommendations (Dr. Carrillo): Echocardiogram to evaluate cardiac function: normal EF, no structural abnormalities Outpatient sleep study Aggressive lifestyle modifications in diet and exercise Patient should wear compression socks Rest of management as per primary team Case discussed with the Dr. Carrillo. We will sign off of this case, please call us if any questions Plan discussed with: Patient, Other (rn) Visit Coding Cardiology RES Date of Service: Jul 30, 2025 Billing Provider: JIMMY LOMAS Cardiology Common Codes: [id number] CARE 30-74 MIN JIMMY LOMAS Jul 30, 2025 11:31
--- NOTE | 2025-07-30 11:32 | DVHPN2 ---
Progress Note - Dictate Date Seen: Jul 29, 2025 Medical Necessity Reason Pt with a Central, PICC or Fol: No Subjective PT WITH MORBID OBESITY NOW WITH PERSISTENT LE SWELLING DESPITE BEING ON DIURETICS CT SHOWS PELVIC ADENOPATHY WITH HEPATOMEGALY/ ELEVATED LIVER PROFILE ECHO NORMAL EF CONC LVH NEGATIVE FOR DVT vital signs Vital Sign Date Time Temp Pulse Resp B/P (MAP) Pulse Ox O2 Delivery O2 Flow Rate FiO2 07/30/25 10:00 90 Room Air 07/30/25 09:39 141/92 07/30/25 09:00 98.6 88 18 98.6 07/30/25 08:00 0 21 Total Intake and Output 07/29/25 07/29/25 07/30/25 15:00 23:00 07:00 Intake Total 800 ml 700 ml Balance 800 ml 700 ml medications Current Medications Medications Dose Ordered Sig/Enrico Route Start Time Stop Time Status Last Admin Dose Admin Furosemide 20 mg DAILY IV 07/29/25 10:00 07/30/25 09:39 20 MG Ondansetron HCl 4 mg Q4HP PRN IV 07/28/25 15:45 Acetaminophen 650 mg Q6HP PRN PO 07/28/25 15:45 Polyethylene Glycol 17 gm DAILYPRN PRN PO 07/29/25 16:45 laboratory and microbiology Laboratory Tests 07/30/25 05:56 Test 07/30/25 05:56 Range/Units Serum Glucose 137 H 74-106 mg/dL Problem List MORBID OBESITY NOW WITH PERSISTENT LE SWELLING DESPITE BEING ON DIURETICS CT SHOWS PELVIC ADENOPATHY WITH HEPATOMEGALY/ ELEVATED LIVER PROFILE ECHO NORMAL EF CONC LVH NEGATIVE FOR DVT Assessment/Plan EVALUATION FOR ADENOPATHY INFECTIOUS VS MALIGNANCY UA FOR PROTEINURIA HEP SEROLOGY NO EVIDENCE FOR ABD MASS BECAUSE OF OBESITY LYMPHADENOPATHY MOST LIKELY REACTIVE SLEEP STUDY R/O SLEEP APNEA WEIGHT MANAGEMENT VENOUS INSUFF Plan discussed with: Patient LESLIE KOHLER MD Jul 30, 2025 11:32
[2025-07-30 13:59] LABS: INR 1.03 (0.9-1.15); Partial Thromboplastin Time 30.0 SEC (24.5-34.5); Prothrombin Time 10.9 sec (9.3-11.8)
--- NOTE | 2025-07-30 14:03 | DVHPN2 ---
Progress Note Date Seen: Jul 30, 2025 Resident Creating Document: VI CARLOS Medical Necessity Reason Pt with a Central, PICC or Fol: No Subjective Review of Systems Patient denies any abdominal pain, nausea or vomiting No acute complaints Objective vital signs Vital Sign Date Time Temp Pulse Resp B/P (MAP) Pulse Ox O2 Delivery O2 Flow Rate FiO2 07/30/25 10:00 90 Room Air 07/30/25 09:39 141/92 07/30/25 09:00 98.6 88 18 98.6 07/30/25 08:00 0 21 Total Intake and Output 07/29/25 07/29/25 07/30/25 15:00 23:00 07:00 Intake Total 800 ml 700 ml Balance 800 ml 700 ml medications Current Medications Medications Dose Ordered Sig/Enrico Route Start Time Stop Time Status Last Admin Dose Admin Furosemide 20 mg DAILY IV 07/29/25 10:00 07/30/25 09:39 20 MG Ondansetron HCl 4 mg Q4HP PRN IV 07/28/25 15:45 Acetaminophen 650 mg Q6HP PRN PO 07/28/25 15:45 Polyethylene Glycol 17 gm DAILYPRN PRN PO 07/29/25 16:45 Examination Gen - no pallor, no scleral icterus Skin - Patients skin is warm and dry. HEENT - normocephalic, atraumatic, dry mucous membranes. Neck - supple Pulmonary - B/L clear breath sounds, no crackles cardiovascular - regular S1,S2 heard GI - obese abdomen with no tenderness to palpation. Bowel sounds normoactive. Neurological - Patient is alert and oriented x4. No motor weakness, or sensory abnormality laboratory and microbiology Laboratory Tests 07/30/25 05:56 Test 07/30/25 05:56 Range/Units Serum Glucose 137 H 74-106 mg/dL Problem List/Assessment/Plan Problem List/Assessment/Plan Bilateral iliac and inguinal lymphadenopathy ? Infectious ? Inflammatory ? Neoplastic Morbid obesity ? Constipation Hepatomegaly Hepatic steatosis Plan - CT abdomen pelvis showed left and right inguinal lymphadenopathy, left and right iliac lymphadenopathy, retroperitoneal lymphadenopathy - recommend surgical/IR consultation for lymph node biopsy - monitor monitor LFTs, pending hepatitis panel - MiraLax as needed for constipation Plan discussed with Dr. Connelly Plan discussed with: Patient My Orders My Orders Orders - VI CARLOS Procedure Category Date Status Time Polyethylene Glycol PHA 07/29/25 In Process 17g Powder (Miralax 16:45 BREANNA,VI RESIDENT Jul 30, 2025 14:03
[2025-07-31] VITALS (8 sets, daily range): BP systolic 114–140; BP diastolic 75–91; PULSE 72–116; RESP 17–19; TEMP 97.6–98.8; O2SAT 90–100
[2025-07-31] MEDS: ACETAMINOPHEN 325 MG TAB PO PRN (04:48)
--- NOTE | 2025-07-31 11:23 | DVHSR ---
APPROVED REPORT EXAM: Two-dimensional and M-mode echocardiogram with Doppler and color Doppler. Blood Pressure: 132/85 mmHg INDICATION EF RISK FACTORS Height: 68, Weight: 403 DIMENSIONS LVDd 5.5 (3.8-5.7cm) LA (2D) 4.9 (1.9-4.0cm) Aortic Root (2.0-3.7cm) LVDs 3.6 (2.5-4.0cm) LA (MM) (1.9-4.0cm) Aortic Cusp Exc (1.5-2.0cm) EF (%) 62.0 (55-70%) Rt. Atrium 5.1 (1.9-4.0cm) Asc. Aorta 3.2 cm Mitral Valve Mitral Mitral Stenosis E wave 0.85m/s MV Mean GR. mmHg A wave 0.75m/s MV Peak GR. mmHg E/A ratio 1.1 2D MVA cm2 DECEL Time 213ms PRESS 1/2 Time 46ms IVRT ms Dop MVA 4.82cm2 Aortic Valve Aortic Valve Aortic Stenosis V1 1.25m/s AO Mean GR. 7mmHg V2 1.69m/s AO Peak GR. 11mmHg Other Information Technically limited study due to body habitus. Conclusion EF >60% LAE SALLIE MILD AI
--- NOTE | 2025-07-31 12:19 | DVHPN2 ---
Reviewed: Care Plan, H&P, Labs, Medications, Previous Orders, Radiology Changes from previous H/P or p: No Changes Objective Vitals Vital Signs Date Time Temp Pulse Resp B/P (MAP) Pulse Ox O2 Delivery O2 Flow Rate FiO2 07/31/25 09:00 97.6 72 17 140/79 (99) 98 97.6 07/31/25 08:00 Room Air* 0 21 Intake/Output Intake and Output 07/31/25 07:00 Intake Total 1500 ml Output Total 1200 ml Balance 300 ml Intake Oral 1500 ml Output Urine Total 1200 ml # Voids 4 # Bowel Movements 2 Medications Current Medications Medications Dose Ordered Sig/[place] Route Start Time Stop Time Status Last Admin Dose Admin Furosemide 20 mg DAILY IV 07/29/25 10:00 07/30/25 09:39 20 MG Ondansetron HCl 4 mg Q4HP PRN IV 07/28/25 15:45 Acetaminophen 650 mg Q6HP PRN PO 07/28/25 15:45 07/31/25 04:48 650 MG Polyethylene Glycol 17 gm DAILYPRN PRN PO 07/29/25 16:45 Laboratory Results Laboratory Tests 07/30/25 05:56 Coagulation Test 07/30/25 13:05 Prothrombin Time 10.9 sec (9.3-11.8) Prothrombin Time INR 1.03 (0.9-1.15) Activated Partial Thromboplast Time 30.0 SEC (24.5-34.5) Labs and/or images reviewed: Labs reviewed by me, Image(s) reviewed by me Assessment/Plan Assessment/Plan Bilateral lower extremity swelling unknown etiology: Echocardiogram result pending cardiology consult for Dr Gerardo alicea, continue Lasix Bilateral iliac and inguinal lymphadenopathy: Consult for GI Dr. Karime Connelly, advised interventional radiologist consultation for lymph node biopsy which was placed Morbid obesity BMI of 61 DVT ruled out Controlled diabetes A1c 8.0 Current history of smoking: Counseling Possible obstructive sleep apnea History of alcohol abuse in the past Plan discussed with: Patient My Orders Orders - GEOVANY BRIDGES MD Procedure Category Date Status Time January Shower 07/30/25 In Process 19:05 Date of Service: Jul 31, 2025 Billing Provider: GEOVANY BRIDGES MD Common Visit Codes: [id number] INP/OBS CARE(HIGH) GEOVANY BRIDGES MD Jul 31, 2025 12:19
--- NOTE | 2025-07-31 12:51 | DVHPN2 ---
Progress Note - Dictate Date Seen: Jul 31, 2025 Has the PT tested + for MRSA If YES, has PT been informed?: No Medical Necessity Reason Pt with a Central, PICC or Fol: No Subjective PT WITH MORBID OBESITY NOW WITH PERSISTENT LE SWELLING DESPITE BEING ON DIURETICS CT SHOWS PELVIC ADENOPATHY WITH HEPATOMEGALY/ ELEVATED LIVER PROFILE ECHO NORMAL EF CONC LVH NEGATIVE FOR DVT vital signs Vital Sign Date Time Temp Pulse Resp B/P (MAP) Pulse Ox O2 Delivery O2 Flow Rate FiO2 07/31/25 12:24 140/79 07/31/25 09:00 97.6 72 17 98 97.6 07/31/25 08:00 Room Air* 0 21 Total Intake and Output 07/30/25 07/30/25 07/31/25 15:00 23:00 07:00 Intake Total 600 ml 900 ml Output Total 1200 ml Balance 600 ml -300 ml medications Current Medications Medications Dose Ordered Sig/[place] Route Start Time Stop Time Status Last Admin Dose Admin Furosemide 20 mg DAILY IV 07/29/25 10:00 07/31/25 12:24 20 MG Ondansetron HCl 4 mg Q4HP PRN IV 07/28/25 15:45 Acetaminophen 650 mg Q6HP PRN PO 07/28/25 15:45 07/31/25 04:48 650 MG Polyethylene Glycol 17 gm DAILYPRN PRN PO 07/29/25 16:45 laboratory and microbiology Laboratory Tests 07/30/25 05:56 Test 07/30/25 05:56 Range/Units Serum Glucose 137 H 74-106 mg/dL Problem List MORBID OBESITY NOW WITH PERSISTENT LE SWELLING DESPITE BEING ON DIURETICS CT SHOWS PELVIC ADENOPATHY WITH HEPATOMEGALY/ ELEVATED LIVER PROFILE ECHO NORMAL EF CONC LVH NEGATIVE FOR DVT Assessment/Plan EVALUATION FOR ADENOPATHY INFECTIOUS VS MALIGNANCY UA FOR PROTEINURIA HEP SEROLOGY NO EVIDENCE FOR ABD MASS BECAUSE OF OBESITY LYMPHADENOPATHY MOST LIKELY REACTIVE SLEEP STUDY R/O SLEEP APNEA WEIGHT MANAGEMENT VENOUS INSUFF ECHO DIASTOLIC DYSFUNCTION EF >55% Plan discussed with: Patient LESLIE KOHLER MD Jul 31, 2025 12:51
--- NOTE | 2025-07-31 15:00 | DVHPN2 ---
Progress Note - Dictate Date Seen: Jul 31, 2025 Has the PT tested + for MRSA If YES, has PT been informed?: No Medical Necessity Reason Pt with a Central, PICC or Fol: No Subjective No new complaints Out of bed to chair Increase pedal edema Hepatomegaly and hepatic steatosis vital signs Vital Sign Date Time Temp Pulse Resp B/P (MAP) Pulse Ox O2 Delivery O2 Flow Rate FiO2 07/31/25 13:00 98.8 88 19 136/87 (103) 94 98.8 07/31/25 08:00 Room Air* 0 21 Total Intake and Output 07/30/25 07/30/25 07/31/25 15:00 23:00 07:00 Intake Total 600 ml 900 ml Output Total 1200 ml Balance 600 ml -300 ml medications Current Medications Medications Dose Ordered Sig/[place] Route Start Time Stop Time Status Last Admin Dose Admin Furosemide 20 mg DAILY IV 07/29/25 10:00 07/31/25 12:24 20 MG Ondansetron HCl 4 mg Q4HP PRN IV 07/28/25 15:45 Acetaminophen 650 mg Q6HP PRN PO 07/28/25 15:45 07/31/25 04:48 650 MG Polyethylene Glycol 17 gm DAILYPRN PRN PO 07/29/25 16:45 objective Morbidly obese out of bed to chair No localizing signs Bilateral pedal edema laboratory and microbiology Laboratory Tests 07/30/25 05:56 Test 07/30/25 05:56 Range/Units Serum Glucose 137 H 74-106 mg/dL Problems(with codes): (1) Intractable abdominal pain (2) Acute on chronic systolic heart failure (3) Shortness of breath (4) Hepatic steatosis (5) Elevated liver enzymes Prognosis Plan Continue supportive care Elevated liver enzymes likely related to fatty liver, hepatitis panel pending IR consult for possible biopsy of inguinal lymph node Plan discussed with: Patient, Other (Dr Melendez) FERNANDO PLAZA MD Jul 31, 2025 15:00
[2025-08-01] VITALS (9 sets, daily range): BP systolic 121–153; BP diastolic 69–92; PULSE 85–111; RESP 17–20; TEMP 97.4–98.1; O2SAT 90–97
[2025-08-01 10:31] LABS: Hepatitis B Surface Antigen Negative (Negative)
[2025-08-01 10:52] LABS: Hepatitis C Antibody Negative (Negative)
[2025-08-01] MEDS: MIDAZOLAM HCL 2MG/2ML 2ml VIAL (1mg/ml) ONE (12:20)
[2025-08-01] MEDS: fentaNYL CITRATE 100 MCG/2 ML VL ONE (12:22)
--- NOTE | 2025-08-01 13:54 | DVH ---
US US GUIDANCE FOR NEEDLE PLACEME, HISTORY: LYMPH NODE BIOPSY PROCEDURE: Informed consent was obtained. The patient was placed supine on the gurney, and limited US was performed of the left inguinal lymph node. IV sedation was administered. The skin over the area of interest was prepped with chlorhexidine which was allowed to dry and draped in the usual sterile fashion. Time out was performed. 1% local lidocaine was administered. With intermittent US guidance, a Biopince was placed into the left inguinal lymph node. Multiple biopsies were obtained . The specimens were placed in formalin and RPMI and sent to pathology for analysis. The needle was withdrawn. Post procedural images were obtained. No immediate complication was identified. SEDATION: Dr. Eda Sherman was personally responsible for the administration of moderate sedation during the procedure performed, including the use of an independent trained observer who had no other duties during the procedure. The drugs utilized were IV fentanyl and versed (see nursing log for details). The total time of supervision by the attending physician was approximately 15 minutes. FINDINGS: Enlarged left inguinal lymph node. Intra-procedural images demonstrate biopsy needle within the left inguinal lymph node. IMPRESSION: US guided left inguinal lymph node biopsy. Pathology results pending.
--- NOTE | 2025-08-01 13:57 | DVHPN2 ---
Progress Note - Dictate Date Seen: Aug 01, 2025 Has the PT tested + for MRSA If YES, has PT been informed?: No Medical Necessity Reason Pt with a Central, PICC or Fol: No Subjective PT WITH MORBID OBESITY NOW WITH PERSISTENT LE SWELLING DESPITE BEING ON DIURETICS CT SHOWS PELVIC ADENOPATHY WITH HEPATOMEGALY/ ELEVATED LIVER PROFILE ECHO NORMAL EF CONC LVH NEGATIVE FOR DVT vital signs Vital Sign Date Time Temp Pulse Resp B/P (MAP) Pulse Ox O2 Delivery O2 Flow Rate FiO2 08/01/25 13:00 98.0 88 17 153/83 (106) 93 98.0 08/01/25 10:00 Room Air 0.0 08/01/25 08:20 21 Total Intake and Output 07/31/25 07/31/25 08/01/25 15:00 23:00 07:00 Intake Total 800 ml 0 ml Balance 800 ml 0 ml medications Current Medications Medications Dose Ordered Sig/[place] Route Start Time Stop Time Status Last Admin Dose Admin Furosemide 20 mg DAILY IV 07/29/25 10:00 08/01/25 10:49 20 MG Ondansetron HCl 4 mg Q4HP PRN IV 07/28/25 15:45 Acetaminophen 650 mg Q6HP PRN PO 07/28/25 15:45 07/31/25 04:48 650 MG Polyethylene Glycol 17 gm DAILYPRN PRN PO 07/29/25 16:45 laboratory and microbiology Laboratory Tests 07/30/25 05:56 Test 07/30/25 05:56 Range/Units Serum Glucose 137 H 74-106 mg/dL Problem List MORBID OBESITY NOW WITH PERSISTENT LE SWELLING DESPITE BEING ON DIURETICS CT SHOWS PELVIC ADENOPATHY WITH HEPATOMEGALY/ ELEVATED LIVER PROFILE ECHO NORMAL EF CONC LVH NEGATIVE FOR DVT Assessment/Plan EVALUATION FOR ADENOPATHY INFECTIOUS VS MALIGNANCY UA FOR PROTEINURIA HEP SEROLOGY NO EVIDENCE FOR ABD MASS BECAUSE OF OBESITY LYMPHADENOPATHY MOST LIKELY REACTIVE SLEEP STUDY R/O SLEEP APNEA WEIGHT MANAGEMENT VENOUS INSUFF ECHO DIASTOLIC DYSFUNCTION EF >55% Plan discussed with: Patient LESLIE KOHLER MD Aug 01, 2025 13:57
--- NOTE | 2025-08-01 14:37 | DVHPN2 ---
Reviewed: Care Plan, H&P, Labs, Medications, Previous Orders, Radiology Changes from previous H/P or p: No Changes Objective Vitals Vital Signs Date Time Temp Pulse Resp B/P (MAP) Pulse Ox O2 Delivery O2 Flow Rate FiO2 08/01/25 13:00 98.0 88 17 153/83 (106) 93 98.0 08/01/25 10:00 Room Air 0.0 08/01/25 08:20 21 Intake/Output Intake and Output 08/01/25 07:00 Intake Total 800 ml Balance 800 ml Intake Oral 800 ml # Voids 14 # Bowel Movements 3 Medications Current Medications Medications Dose Ordered Sig/[place] Route Start Time Stop Time Status Last Admin Dose Admin Furosemide 20 mg DAILY IV 07/29/25 10:00 08/01/25 10:49 20 MG Ondansetron HCl 4 mg Q4HP PRN IV 07/28/25 15:45 Acetaminophen 650 mg Q6HP PRN PO 07/28/25 15:45 07/31/25 04:48 650 MG Polyethylene Glycol 17 gm DAILYPRN PRN PO 07/29/25 16:45 Laboratory Results Laboratory Tests 07/30/25 05:56 Labs and/or images reviewed: Labs reviewed by me, Image(s) reviewed by me Assessment/Plan Assessment/Plan Bilateral lower extremity swelling unknown etiology: Echocardiogram result pending cardiology consult for Dr Gerardo alicea, continue Lasix Bilateral iliac and inguinal lymphadenopathy: Consult for GI Dr. Karime Connelly, status post left inguinal lymph node biopsy by interventional radiologist on 08/01/2025, biopsy report pending Morbid obesity BMI of 61 DVT ruled out Controlled diabetes A1c 8.0 Current history of smoking: Counseling Possible obstructive sleep apnea History of alcohol abuse in the past Will watch overnight for any complications after the biopsy Plan discussed with: Patient Date of Service: Aug 01, 2025 Billing Provider: GEOVANY BRIDGES MD Common Visit Codes: [id number] INP/OBS CARE(HIGH) GEOVANY BRIDGES MD Aug 01, 2025 14:37
--- NOTE | 2025-08-01 18:17 | DVHPN2 ---
Progress Note Date Seen: Aug 01, 2025 Resident Creating Document: BREANNAEBMICHA RESIDENT Has the PT tested + for MRSA If YES, has PT been informed?: No Medical Necessity Reason Pt with a Central, PICC or Fol: No Subjective Review of Systems Patient tolerating diet well Underwent lymph node biopsy from left inguinal lymph node Reports having regular bowel movements Objective vital signs Vital Sign Date Time Temp Pulse Resp B/P (MAP) Pulse Ox O2 Delivery O2 Flow Rate FiO2 08/01/25 17:00 98.1 93 18 147/72 (97) 90 98.1 08/01/25 10:00 Room Air 0.0 08/01/25 08:20 21 Total Intake and Output 07/31/25 07/31/25 08/01/25 15:00 23:00 07:00 Intake Total 800 ml 0 ml Balance 800 ml 0 ml medications Current Medications Medications Dose Ordered Sig/[place] Route Start Time Stop Time Status Last Admin Dose Admin Furosemide 20 mg DAILY IV 07/29/25 10:00 08/01/25 10:49 20 MG Ondansetron HCl 4 mg Q4HP PRN IV 07/28/25 15:45 Acetaminophen 650 mg Q6HP PRN PO 07/28/25 15:45 07/31/25 04:48 650 MG Polyethylene Glycol 17 gm DAILYPRN PRN PO 07/29/25 16:45 Examination Gen - no pallor, no scleral icterus Skin - Patients skin is warm and dry. HEENT - normocephalic, atraumatic, dry mucous membranes. Neck - supple Pulmonary - B/L clear breath sounds, no crackles, breathing through pursed lips cardiovascular - regular S1,S2 heard GI - obese abdomen with no tenderness to palpation. Bowel sounds normoactive. Neurological - Patient is alert and oriented x4. No motor weakness, or sensory abnormality laboratory and microbiology Laboratory Tests 07/30/25 05:56 Test 07/30/25 05:56 Range/Units Serum Glucose 137 H 74-106 mg/dL Problem List/Assessment/Plan Problem List/Assessment/Plan Bilateral iliac and inguinal lymphadenopathy ? Infectious ? Inflammatory ? Neoplastic Morbid obesity Constipation, resolved Hepatomegaly Hepatic steatosis Plan - CT abdomen pelvis showed left and right inguinal lymphadenopathy, left and right iliac lymphadenopathy, retroperitoneal lymphadenopathy - status post biopsy from left inguinal lymph nodes on 08/01 - monitor monitor LFTs, hepatitis panel negative - MiraLax as needed for constipation - patient will benefit from outpatient follow up in the GI clinic Plan discussed with Dr. Connelly Plan discussed with: Patient, Other (RN Don) My Orders My Orders Orders - VI CARLOS Procedure Category Date Status Time Midazolam Injection [facility] 08/01/25 In Process (Versed Injection) 12:04 VI CARLOS Aug 01, 2025 18:17
[2025-08-02 01:00] VITALS: BP 142/95; PULSE 95; RESP 19; TEMP 97.9; O2SAT 91
[2025-08-02 05:00] VITALS: BP 126/81; PULSE 91; RESP 18; TEMP 97.7; O2SAT 92
[2025-08-02 06:39] LABS: Hematocrit 43.8 % (41.0-53.0); Hemoglobin 14.3 g/dL (13.5-17.5); Mean Corpuscular Hemoglobin 28.7 pg (28.0-32.0); Mean Corpuscular Volume 88.0 fL (80.0-100.0); Nucleated Red Blood Cells % 0.0 %
[2025-08-02 08:20] VITALS: PULSE 96; RESP 18; O2SAT 93
[2025-08-02 09:00] VITALS: BP 148/85; PULSE 96; RESP 20; TEMP 97.9; O2SAT 93
[2025-08-02] MEDS ORDERED: POLY335015 PO (11:19)
[2025-08-02] MEDS ORDERED: FURO1TAB31 PO (11:19)
[2025-08-02] MEDS ORDERED: POTA-36 PO (11:19)
--- NOTE | 2025-08-02 11:36 | DVHDS2 ---
Discharge Summary Date of Admission Jul 28, 2025 at 15:33 Date of Discharge: Aug 02, 2025 Admitting Diagnosis Bilateral lower extremity swelling Wounds: None Labs/Diagnostic Data: Laboratory Results Test 08/02/25 05:24 07/30/25 13:05 07/30/25 05:56 07/29/25 16:39 White Blood Count 9.0 10^3/uL (4.4-10.8) Red Blood Count 4.97 10^6/uL (4.5-5.90) Hemoglobin 14.3 g/dL (13.5-17.5) Hematocrit 43.8 % (41.0-53.0) Mean Corpuscular Volume 88.0 fL (80.0-100.0) Mean Corpuscular Hemoglobin 28.7 pg (28.0-32.0) Mean Corpuscular Hemoglobin Concent 32.6 g/dL (32.0-36.0) Red Cell Distribution Width 15.4 % (11.8-14.3) Platelet Count 245 10^3/uL (140-450) Mean Platelet Volume 9.1 fL (6.9-10.8) Neutrophils (%) (Auto) 71.2 % (37.0-80.0) Lymphocytes (%) (Auto) 15.0 % (10.0-50.0) Monocytes (%) (Auto) 10.5 % (0.0-12.0) Eosinophils (%) (Auto) 2.6 % (0.0-7.0) Basophils (%) (Auto) 0.7 % (0.0-2.0) Neutrophils # (Auto) 6.4 10 ^3/uL (1.6-8.6) Lymphocytes # (Auto) 1.4 10 ^3/uL (0.4-5.4) Monocytes # (Auto) 0.9 10 ^3/uL (0-1.3) Eosinophils # (Auto) 0.2 10 ^3/uL (0-0.8) Basophils # (Auto) 0.1 10 ^3/uL (0-0.2) Nucleated Red Blood Cells 0.0 % Prothrombin Time 10.9 sec (9.3-11.8) Prothrombin Time INR 1.03 (0.9-1.15) Activated Partial Thromboplast Time 30.0 SEC (24.5-34.5) Hepatitis A IgM Antibody Negative Hepatitis B Surface Antigen Negative (Negative) Hepatitis B Core IgM Antibody Negative (Negative) Hepatitis C Antibody Negative (Negative) Sodium Level 140 mmol/L (136-145) Potassium Level 3.9 mmol/L (3.5-5.1) Chloride Level 99 mmol/L (98-107) Carbon Dioxide Level 31 mmol/L (20-31) Anion Gap 10 (5-15) Blood Urea Nitrogen 10 mg/dL (9-23) Creatinine 0.91 mg/dL (0.700-1.30) Glomerular Filtration Rate Calc 108 mL/min (>90) BUN/Creatinine Ratio 11.0 (10.0-20.0) Serum Glucose 137 mg/dL (74-106) Calcium Level 9.4 mg/dL (8.7-10.4) Total Bilirubin 0.4 mg/dL (0.2-1.0) Aspartate Amino Transferase (AST) 48 U/L (13-40) Alanine Aminotransferase (ALT) 56 U/L (7-40) Alkaline Phosphatase 119 U/L (46-116) Total Protein 7.7 g/dL (5.7-8.2) Albumin 4.3 g/dL (3.2-4.8) Carcinoembryonic Antigen 1.83 ng/mL (<=5.0) Test 07/29/25 05:35 07/28/25 17:04 07/28/25 14:09 07/28/25 12:00 Magnesium Level 1.8 mg/dL (1.6-2.6) Tumor Marker Alpha Fetoprotein 2.8 ng/mL (0.0-6.9) Hemoglobin A1c 8.0 % A1C (<5.7) Urine Opiates Screen Neg (NEGATIVE) Urine Fentanyl Screen Neg (NEGATIVE) Urine Barbiturates Screen Neg (NEGATIVE) Urine Phencyclidine Screen Neg (NEGATIVE) Urine Amphetamines Screen Neg (NEGATIVE) Urine Benzodiazepines Screen Neg (NEGATIVE) Urine Cocaine Screen Neg (NEGATIVE) Urine Cannabinoids Screen Neg (NEGATIVE) Troponin I High Sensitivity 5 ng/L (</=54) Test 07/28/25 08:58 B-Type Natriuretic Peptide 2.30 pg/mL (0-100) Triglycerides Level 122 mg/dL (< 150) Cholesterol Level 141 mg/dL (< 200) LDL Cholesterol 93 mg/dL (< 100) HDL Cholesterol 38 mg/dL (40-59) Thyroid Stimulating Hormone (TSH) 1.87 uIU/mL (0.55-4.78) Other Laboratory Tests 08/02/25 05:24 07/30/25 05:56 Brief Hx & Hospital Course: 40-year-old male morbidly obese BMI 61 history of alcohol abuse chronic current smoker diabetes with a A1c 8.0 came in complaining of bilateral lower extremity swelling. Echocardiogram 60 percent ejection fraction seen by Cardiology Dr. Montaño placed on Lasix CT abdomen pelvis showed bilateral iliac and inguinal lymphadenopathy seen by GI Dr. Karime Connelly advised lymph node biopsy underwent left inguinal lymph node biopsy by interventional radiologist on 08/01/2025 biopsy report is pending. DVT ruled out. Patient was counseled about quitting smoking possible obstructive sleep apnea advised to see vp director of finance through primary Dr for sleep lab studies. At the time of discharge he is on room air with stable vital signs. Discharged home on Lasix potassium and MiraLax for constipation. He was advised to follow up with the GI Dr. Karime Connelly for the inguinal node biopsy result to rule out any malignancy Consults/Reason for consult Cardiology Dr. Carrillo GI Dr. Karime Connelly Operations or Procedures CT abdomen pelvis without contrast Iliac lymph node biopsy Condition at Discharge: Fair Final Diagnosis/Problems List Bilateral lower extremity swelling unknown etiology: Echocardiogram result pending cardiology consult for Dr Gerardo alicea, continue Lasix Bilateral iliac and inguinal lymphadenopathy: Consult for GI Dr. Karime Connelly, status post left inguinal lymph node biopsy by interventional radiologist on 08/01/2025, biopsy report pending Morbid obesity BMI of 61 DVT ruled out Controlled diabetes A1c 8.0 Current history of smoking: Counseling Possible obstructive sleep apnea History of alcohol abuse in the past Discharge Disposition: Home Discharge Instruct/Medications Diet: Cardiac 2g Na,low cholest Activity: Light activity Follow Up/Referral: Follow up with GI Dr. Karime Connelly in 10 days for the lymph node biopsy result Follow up With the vp director of finance through your primary Dr for sleep lab studies regarding your sleep apnea Medications: Lasix MiraLax Potassium Transmitted to [facility] Scheduled Famotidine (Pepcid Tablet), 1 TAB PO BID Furosemide (Lasix), 40 MG PO DAILY Potassium Chloride (Potassium Chloride Cr), 1 TAB PO DAILY Prednisone (Prednisone), 1 TAB PO BID Scheduled PRN Diphenhydramine Hcl (Benadryl Allergy), 1 CAP PO Q8HPRN PRN Polyethylene Glycol 3350 (Miralax), 17 GM PO DAILY PRN 39 (Time taken for discharge summary 39 minutes) Discharge Statement: "Patient was advised to return to the ER or call 911 if any headaches, dizziness, shortness of breath, chest pain, abdominal pain, bleeding, fevers, or worsening of medical condition. Patient was counseled about treatment plan, medications, possible side effects, patientverbalized understanding. All questions were answered to the best of my ability. This discharge took greater then 30 minutes in planning, reviewing documentation, counseling the patient, and discussing with other team members." ASSESSMENT ASSESSMENT Hospital Course Uneventful Assessment Bilateral lower extremity swelling unknown etiology: Echocardiogram result pending cardiology consult for Dr Gerardo alicea, continue Lasix Bilateral iliac and inguinal lymphadenopathy: Consult for GI Dr. Karime Connelly, status post left inguinal lymph node biopsy by interventional radiologist on 08/01/2025, biopsy report pending Morbid obesity BMI of 61 DVT ruled out Controlled diabetes A1c 8.0 Current history of smoking: Counseling Possible obstructive sleep apnea History of alcohol abuse in the past Date of Service: Aug 02, 2025 Billing Provider: GEOVANY BRIDGES MD Common Visit Codes: [id number] DISCH DAY >30min GEOVANY BRIDGES MD Aug 02, 2025 11:36
[2025-08-02 12:12] VITALS: BP 148/85; PULSE 84; RESP 18; TEMP 36.6; O2SAT 94
[2025-08-02 12:33] VITALS: BP 137/95; PULSE 84; RESP 18; TEMP 98.6; O2SAT 94
== END 2025-08-02 13:33 | disposition home or self-care (01) | DRG 651 ==
LOC: ER 08:15 → OVERFLOW 15:33 → WEST WING 17:24 → TELE-WESTW 07-29 21:35
PROVIDERS: ADMIT Family Medicine; ATTEND Family Medicine
PROC: 07BJ3ZX Excision of Left Inguinal Lymphatic, Percutaneous Approach, Diagnostic (ICD-10-PCS; principal; 2025-08-01)
DX: R59.0 Localized enlarged lymph nodes (principal); R16.0 Hepatomegaly, not elsewhere classified; Z68.44 Body mass index [BMI] 60.0-69.9, adult; E11.9 Type 2 diabetes mellitus without complications; F10.10 Alcohol abuse, uncomplicated; K76.0 Fatty (change of) liver, not elsewhere classified; M79.89 Other specified soft tissue disorders; E66.01 Morbid (severe) obesity due to excess calories; R80.9 Proteinuria, unspecified; F17.210 Nicotine dependence, cigarettes, uncomplicated; K59.00 Constipation, unspecified; Z79.899 Other long term (current) drug therapy; Z82.49 Family history of ischemic heart disease and other diseases of the circulatory system
CPT/HCPCS: 36415; 38505; 71045; 74177; 76942; 80048; 80053; 80061; 80074; 80307; 82105; 82378; 83036; 83735; 83880; 84443; 84484; 85025; 85610; 85730; 88341; 88360; 93306; 93970; G0378; J2250